=== PATIENT | female | born 1990 | race Caucasian/White ===

== ENCOUNTER 2018-10-23 08:41 | Emergency (ER) | payer SELFPAY, MEDICAID ==
[2018-10-23] MEDS: HYDROCODONE/APAP (5/325) TAB PO (09:08)
[2018-10-23] MEDS: ONDANSETRON (ODT) 4 MG TAB ODT (09:08)
[2018-10-23] MEDS: CLINDAMYCIN 300 MG CAP PO (09:13)
== END 2018-10-23 09:46 | disposition home or self-care (01) ==
LOC: FTE 09:46
DX: K08.89 Other specified disorders of teeth and supporting structures (principal)
CPT/HCPCS: 99283